=== PATIENT | female | born 1995 | race Caucasian/White ===

== ENCOUNTER 2017-11-05 07:50 | Inpatient (IN) | payer OTHER ==
[2017-11-05] MEDS ORDERED: oxyCODONE HCL 5 MG TABLET PO PRN (08:54)
[2017-11-05] MEDS ORDERED: BENZOCAINE 28 GM HEMORRHOIDAL OINTMENT TP PRN (08:54)
[2017-11-05] MEDS ORDERED: METHYLERGONOVINE MALEATE 0.2 MG/1 ML AMP IM PRN (08:54)
[2017-11-05] MEDS ORDERED: IBUPROFEN 600 MG TABLET (FP) PO PRN (08:54)
[2017-11-05] MEDS ORDERED: BENZOCAINE 20% 57 GM BOTTLE TP PRN (08:54)
[2017-11-05] MEDS ORDERED: BISACODYL 10 MG SUPP.RECT RC PRN (08:54)
[2017-11-05] MEDS ORDERED: ACETAMINOPHEN 325 MG TABLET (FP) PO PRN (08:54)
[2017-11-05] MEDS ORDERED: WITCH HAZEL 50% (TUCKS) 40 PAD/JAR PAD TP PRN (08:54)
[2017-11-05] MEDS ORDERED: D5W-LR W/ 20 UNITS OXYTOCIN 20 UNIT/1,000 ML INFUS.BAG IV SCH ×2 (09:00→10:00)
[2017-11-05] MEDS ORDERED: DEXTROSE 5%-LACTATED RINGERS 1,000 ML IV SCH (09:15)
[2017-11-05] MEDS ORDERED: AMPICILLIN - 2 GM/100 ML BAG IVPB ONE (09:15)
[2017-11-05 09:28] VITALS: BMI 39.4
[2017-11-05 09:44] LABS: BASO % 0.3 % (0-2.0); EOS % 0.1 % (0-4.5); HEMATOCRIT 36.9 % (32.4-45.2); HEMOGLOBIN 11.6 GM/dL (10.7-15.3); LYMPH % 8.1 % (8-40); MCH 26.2 pg (25.7-33.7); MCHC 31.5 g/dl (32.0-36.0); MEAN PLT VOLUME 8.2 fl (7.5-11.1); MONO % 7.3 % (3.8-10.2); NEUT % 84.2 % (42.8-82.8); PLATELET COUNT 161 K/MM3 (134-434); RBC 4.44 M/mm3 (3.60-5.2); RDW 14.9 % (11.6-15.6); WHITE BLOOD COUNT 8.7 K/mm3 (4.0-10.0)
[2017-11-05] MEDS: FERROUS SO4 325 MG TABLET (FP) PO SCH ×2 (10:00→18:57)
[2017-11-05] MEDS: PRENATAL VITAMINS W/ FOLIC ACID TABLET (FP) PO SCH (10:00)
[2017-11-05 10:06] LABS: ANION GAP 11 (8-16); BLOOD UREA NITROGEN 10 mg/dL (7-18); CALCIUM 8.9 mg/dL (8.5-10.1); CHLORIDE 105 mmol/L (98-107); CO2 22 mmol/L (21-32); CREATININE 0.7 mg/dL (0.55-1.02); GLUCOSE,RANDOM 91 mg/dL (74-106); POTASSIUM 3.7 mmol/L (3.5-5.1); SODIUM 138 mmol/L (136-145)
[2017-11-05 10:12] LABS: INR 0.94 (0.82-1.09); PROTHROMBIN TIME (PATIENT) 10.6 SEC (9.98-11.88)
[2017-11-05 11:17] LABS: COCAINE, UR NEGATIVE ng/ml (CUTOFF=300); METHADONE, UR NEGATIVE ng/ml (CUTOFF=300); OPIATES, URI NEGATIVE ng/ml (CUTOFF=300); PHENCYCLIDINE,URINE NEGATIVE ng/ml (CUTOFF=25); URINE AMPHETAMINES NEGATIVE ng/ml (CUTOFF=500); URINE BARBITURATES NEGATIVE ng/ml (CUTOFF=200); URINE BENZODIAZEPINES NEGATIVE ng/ml (CUTOFF=200)
[2017-11-06 08:41] LABS: BASO % 0.3 % (0-2.0); EOS % 0.4 % (0-4.5); HEMATOCRIT 32.7 % (32.4-45.2); HEMOGLOBIN 10.5 GM/dL (10.7-15.3); LYMPH % 22.2 % (8-40); MCH 26.2 pg (25.7-33.7); MCHC 32.2 g/dl (32.0-36.0); MEAN CELL VOLUME 81.5 fl (80-96); MEAN PLT VOLUME 7.9 fl (7.5-11.1); MONO % 12.8 % (3.8-10.2); NEUT % 64.3 % (42.8-82.8); PLATELET COUNT 170 K/MM3 (134-434); RBC 4.02 M/mm3 (3.60-5.2); RDW 14.5 % (11.6-15.6); WHITE BLOOD COUNT 9.2 K/mm3 (4.0-10.0)
[2017-11-06] MEDS: PRENATAL VITAMINS W/ FOLIC ACID TABLET (FP) PO SCH (09:28)
[2017-11-06] MEDS: FERROUS SO4 325 MG TABLET (FP) PO SCH ×2 (09:28→17:20)
[2017-11-06] MEDS ORDERED: FLU VACC QS2017-18 36MOS UP/PF 60 MCG/0.5 ML SYRINGE IM ONE (10:00)
[2017-11-06] MEDS ORDERED: DIPHTH,PERTUSS(ACELL),TET 0.5 ML DISP.SYRIN IM ONE (10:00)
--- NOTE | 2017-11-06 18:28 | PN ---
Post Progress Note - Subjective Subjective: Pt feeling well. No complaints Post Day: 1 Type of Delivery: Vital Signs: Vital Signs Temperature 97.8 F 11/06/17 13:47 Pulse Rate 86 11/06/17 13:47 Respiratory Rate 20 11/06/17 13:47 Blood Pressure 117/76 11/06/17 13:47 O2 Sat by Pulse Oximetry (%) 100 11/05/17 09:45 Breast Exam: Yes: Soft Uterus: Yes: Fundus Firm Abdomen/GI: Yes: Abdomen soft Lochia, amount: Small Extremities: Yes: Calves non-tender Activity: Ambulating - Labs Labs: CBC WBC 9.2 K/mm3 (4.0-10.0) 11/06/17 07:45 RBC 4.02 M/mm3 (3.60-5.2) 11/06/17 07:45 Hgb 10.5 GM/dL (10.7-15.3) L 11/06/17 07:45 Hct 32.7 % (32.4-45.2) 11/06/17 07:45 MCV 81.5 fl (80-96) 11/06/17 07:45 MCH 26.2 pg (25.7-33.7) 11/06/17 07:45 MCHC 32.2 g/dl (32.0-36.0) 11/06/17 07:45 RDW 14.5 % (11.6-15.6) 11/06/17 07:45 Plt Count 170 K/MM3 (134-434) 11/06/17 07:45 MPV 7.9 fl (7.5-11.1) 11/06/17 07:45 Neutrophils % 64.3 % (42.8-82.8) D 11/06/17 07:45 Lymphocytes % 22.2 % (8-40) D 11/06/17 07:45 Monocytes % 12.8 % (3.8-10.2) H 11/06/17 07:45 Eosinophils % 0.4 % (0-4.5) D 11/06/17 07:45 Basophils % 0.3 % (0-2.0) 11/06/17 07:45 Assessment/Plan Pt PPD#1 s/p doing well plan for discharge home tomorrow advised to schedule pp visit Dr. Posadas
--- NOTE | 2017-11-06 18:29 | DS ---
Physical Exam-FIELD INSTRUCTOR Vital Signs: Vital Signs Temperature 97.8 F 11/06/17 13:47 Pulse Rate 86 11/06/17 13:47 Respiratory Rate 20 11/06/17 13:47 Blood Pressure 117/76 11/06/17 13:47 O2 Sat by Pulse Oximetry (%) 100 11/05/17 09:45 Constitutional: Yes: Well Nourished, No Distress, Calm Eyes: Yes: WNL, Conjunctiva Clear, EOM Intact HENT: Yes: WNL, Atraumatic, Normocephalic Neck: Yes: WNL, Supple, Trachea Midline Cardiovascular: Yes: WNL, Regular Rate and Rhythm Respiratory: Yes: WNL, Regular, CTA Bilaterally Gastrointestinal: Yes: WNL ...Rectal Exam: Yes: WNL Renal/: Yes: WNL Breast(s): Yes: WNL Musculoskeletal: Yes: WNL Extremities: Yes: WNL Integumentary: Yes: WNL Neurological: Yes: WNL, Alert, Oriented ...Motor Strength: WNL Psychiatric: Yes: WNL, Alert, Oriented Labs: CBC, BMP 11/06/17 07:45 11/05/17 09:38 Delivery - Delivery Type of Anesthesia: None Episiotomy/Laceration: None EBL (cc): 350 Delivery, Single - Stages of Labor Date 1st Stage Initiatied: 11/05/17 Time 1st Stage Initiated: 03:30 Date 2nd Stage Initiated: 11/05/17 Time 2nd Stage Initiated: 08:20 Date of Delivery: 11/05/17 Time of Delivery: 08:37 Time Placenta Delivered: 08:45 - 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 You may walk unlimited richardson of and climb stairs. You may resume driving the car when you feel safe and comfortable behind the wheel. No sexual activity as instructed. Wound care If you have a bandage, leave it on, and keep dry for 48-72 hours. After that time discard the outer bandage. If they are tapes on the skin under the out of bandage leave them in place. They will peel off in the next 7 to 10 days. Do Not Peel them off. You may shower the day after surgery. If there are tapes present on the skin, you may shower over them. Diet There are no dietary restrictions. Eat healthy, high-fiber foods. Drink 6 to 8 glasses of liquid each day. This will assist in keeping your bowels are regular. Pain management You may take Tylenol or acetaminophen or Ibuprofen (for example, Motrin, Advil etc.) from my pain prescription medication is ordered should be taken as prescribed for moderate to severe pain. Call MD for any of the following: Severe pain not relieved by medication Fever of 101 or higher Excessive bleeding or drainage on dressing Inability to urinate Disposition: HOME - Home Medications Comprehensive Discharge Medication List: Ambulatory Orders Vitamins (Sjr) - 1 tab PO DAILY 05/18/15 Ferrous Sulfate [Feosol] 325 mg PO DAILY 11/05/17
[2017-11-06] MEDS ORDERED: SENNOSIDES/DOCUSATE COMBO (SENNA PLUS) TABLET (UD) PO PRN (22:00)
[2017-11-06 23:51] VITALS: TEMP 98.2
[2017-11-07] MEDS: FERROUS SO4 325 MG TABLET (FP) PO SCH (08:43)
[2017-11-07] MEDS: PRENATAL VITAMINS W/ FOLIC ACID TABLET (FP) PO SCH (09:25)
[2017-11-07 12:23] VITALS: BP 112/64; PULSE 66
== END 2017-11-07 13:30 | disposition home or self-care (01) | DRG 560 ==
LOC: JLDR 07:50 → J3W 10:28
PROVIDERS: ADMIT Obstetrics & Gynecology; ATTEND Obstetrics & Gynecology
PROC: 10E0XZZ Delivery of Products of Conception, External Approach (ICD-10-PCS; principal; 2017-11-05)
DX: O80 Encounter for full-term uncomplicated delivery (principal); Z3A.37 37 weeks gestation of pregnancy; Z37.0 Single live birth
CPT/HCPCS: 36415; 59409; 80048; 80307; 85025; 85610; 85730; 86593; 86850; 86900; 86901; 90686; 90715; G0008